=== PATIENT | female | born 1980 | race Caucasian/White ===

== ENCOUNTER 2018-01-19 08:35 | Day surgery (SDC) | payer OTHER ==
[2018-01-17 18:09] VITALS: BMI 44.4
[2018-01-19] MEDS ORDERED: PROPOFOL 20 ML ONE ×2 (08:52)
[2018-01-19 11:12] VITALS: BP 136/71; PULSE 54; TEMP 97.9
== END 2018-01-19 11:05 | disposition home or self-care (01) ==
LOC: FASU-ENDO 08:35
PROVIDERS: ATTEND Internal Medicine Gastroenterology
PROC: 0DJ08ZZ Inspection of Upper Intestinal Tract, Via Natural or Artificial Opening Endoscopic (ICD-10-PCS; principal; 2018-01-19 10:00)
DX: Z13.810 Encounter for screening for upper gastrointestinal disorder (principal); Z87.19 Personal history of other diseases of the digestive system
CPT/HCPCS: 84703

== ENCOUNTER 2018-05-11 08:58 | Day surgery (SDC) | payer OTHER ==
[2018-05-04 10:51] VITALS: BMI 42.5
[2018-05-11] MEDS ORDERED: LIDOCAINE HCL/PF 2% SDV 5ML VIAL ONE (10:28)
[2018-05-11] MEDS ORDERED: PROPOFOL 20 ML ONE ×2 (10:28)
[2018-05-11 11:32] VITALS: TEMP 98
[2018-05-11 13:39] VITALS: BP 124/85; PULSE 88
--- NOTE | 2018-05-13 11:47 | PATH ---
Surgical Pathology Report Patient Name: JOSÉ MIGUEL LAZARO [facility]. Rec. #: [id number] /Age/Gender: 1980 (Age: 38) / F Account: [id number] Location: [facility] Taken: 05/11/2018 Received: 05/11/2018 Reported: 05/13/2018 Physicians: Vonnie Pickett M.D. Specimen(s) Received A: DUODENUM B: ANTRUM C: GE JUNCTION Clinical History r/o celiac, r/o Castillo's, gastritis, duodenitis Final Diagnosis A. DUODENUM, BIOPSY: DUODENAL MUCOSA WITH NO PATHOLOGIC FINDINGS. Note: Features suggestive of celiac disease are not identified in this biopsy. B. ANTRUM, BIOPSY: MILD CHRONIC GASTRITIS. IMMUNOSTAIN IS NEGATIVE FOR H. PYLORI ORGANISMS. C. GE JUNCTION, BIOPSY: ESOPHAGOGASTRIC JUNCTIONAL (SQUAMOCOLUMNAR) MUCOSA SHOWING MODERATE CHRONIC INFLAMMATION AND FEATURES OF REFLUX ESOPHAGITIS. NEGATIVE FOR INTESTINAL METAPLASIA. Electronically Signed Daya Leslie M.D. Gross Description A. Received in formalin, labeled "duodenum" is one piece of coker tissue measuring 0.4 cm in greatest dimension. Entirely submitted in one cassette. B. Received in formalin, labeled "antrum" two pieces of coker tissue measuring 0.2 and 0.4 cm in greatest dimension. Entirely submitted in one cassette. C. Received in formalin, labeled "GE junction" are three pieces of coker tissue ranging from 0.2-0.4 cm in greatest dimension. Entirely submitted in one cassette. AE/05/11/2018 ebram/05/11/2018
== END 2018-05-11 12:00 | disposition home or self-care (01) ==
LOC: FASU-ENDO 08:58
PROVIDERS: ATTEND Internal Medicine Gastroenterology
PROC: 0DB58ZX Excision of Esophagus, Via Natural or Artificial Opening Endoscopic, Diagnostic (ICD-10-PCS; 2018-05-11)
PROC: 0DB98ZX Excision of Duodenum, Via Natural or Artificial Opening Endoscopic, Diagnostic (ICD-10-PCS; principal; 2018-05-11 11:00)
PROC: 0DB68ZX Excision of Stomach, Via Natural or Artificial Opening Endoscopic, Diagnostic (ICD-10-PCS; 2018-05-11 11:00)
DX: K22.70 Barrett's esophagus without dysplasia (principal); K29.50 Unspecified chronic gastritis without bleeding; K21.0 Gastro-esophageal reflux disease with esophagitis
CPT/HCPCS: 84703; 88305-TC; 88342-TC

== ENCOUNTER 2019-08-25 10:33 | Day surgery (SDC) | payer OTHER ==
[2019-08-24 14:48] VITALS: BMI 46.5
[2019-08-25] MEDS ORDERED: PROPOFOL 20 ML ONE ×2 (10:42)
[2019-08-25] MEDS ORDERED: MIDAZOLAM HCL 2 MG/2 ML SINGLE DOSE VIAL ONE (11:35)
[2019-08-25 13:57] VITALS: TEMP 98.1
[2019-08-25 14:02] VITALS: BP 125/57; PULSE 68
--- NOTE | 2019-08-29 15:03 | PATH ---
Surgical Pathology Report Patient Name: JOSÉ MIGUEL LAZARO [facility]. Rec. #: [id number] /Age/Gender: 1980 (Age: 39) / F Account: [id number] Location: [facility] Taken: 08/25/2019 Received: 08/25/2019 Reported: 08/29/2019 Physicians: Vonnie Pickett M.D. Specimen(s) Received A: ANTRUM B: GE JUNCTION Clinical History Barretts esophagus Postoperative diagnosis: Gastritis, Neumann's esophagus Final Diagnosis A. STOMACH, ANTRUM, BIOPSY: GASTRIC FUNDIC MUCOSA WITH MODERATE CHRONIC ACTIVE GASTRITIS. IMMUNOSTAIN FOR H. PYLORI IS NEGATIVE. B. 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 NO DYSPLASIA IDENTIFIED. Electronically Signed Arturo Reeves M.D. Gross Description A. Received in formalin, labeled "biopsy gastric antrum" is a coker, irregular portion of soft tissue measuring 0.4 cm. in greatest dimension. The specimen is submitted in toto in one cassette. B. Received in formalin, labeled "biopsy GE junction" are 6 coker, irregular portions of soft tissue ranging from 0.1-0.4 cm. in greatest dimension. The specimens are submitted in toto in one cassette. 08/28/2019 saudi08/28/2019
== END 2019-08-25 12:45 | disposition home or self-care (01) ==
LOC: FASU-ENDO 10:33
PROVIDERS: ATTEND Internal Medicine Gastroenterology
PROC: 0DB68ZX Excision of Stomach, Via Natural or Artificial Opening Endoscopic, Diagnostic (ICD-10-PCS; 2019-08-25)
PROC: 0DB18ZX Excision of Upper Esophagus, Via Natural or Artificial Opening Endoscopic, Diagnostic (ICD-10-PCS; 2019-08-25)
PROC: 0DB28ZX Excision of Middle Esophagus, Via Natural or Artificial Opening Endoscopic, Diagnostic (ICD-10-PCS; 2019-08-25)
PROC: 0DB38ZX Excision of Lower Esophagus, Via Natural or Artificial Opening Endoscopic, Diagnostic (ICD-10-PCS; 2019-08-25)
PROC: 0DB48ZX Excision of Esophagogastric Junction, Via Natural or Artificial Opening Endoscopic, Diagnostic (ICD-10-PCS; principal; 2019-08-25 11:40)
DX: K22.70 Barrett's esophagus without dysplasia (principal); K29.50 Unspecified chronic gastritis without bleeding
CPT/HCPCS: 84703; 88305-TC; 88342-TC

== ENCOUNTER 2021-06-18 12:57 | Emergency (ER) | payer MEDICARE ==
[2021-06-18 13:33] VITALS: BP 127/82; PULSE 90; TEMP 98.4; BMI 26.0
[2021-06-18] MEDS ORDERED: ALBUTEROL SO4 2.5/IPRATROPIUM 0.5 INH SOL 3 ML VIAL.NEB. NEB ONE ×2 (14:05→14:11)
[2021-06-18] MEDS ORDERED: IBUPROFEN 600 MG TABLET (FP) PO ONE ×2 (14:05→14:11)
[2021-06-18] MEDS ORDERED: predniSONE 20 MG TABLET (UD) ONE (14:18)
[2021-06-18] MEDS ORDERED: predniSONE 10 MG TABLET (UD) ONE (14:18)
[2021-06-19] MEDS ORDERED: predniSONE 20 MG TABLET (UD) PO ONE (14:17)
== END 2021-06-18 16:34 | disposition home or self-care (01) ==
LOC: JER 12:57
PROC: 3E0F7GC Introduction of Other Therapeutic Substance into Respiratory Tract, Via Natural or Artificial Opening (ICD-10-PCS; principal; 2021-06-18)
DX: R05.9 Cough, unspecified (principal)
CPT/HCPCS: 71046-TC-FY; 94640; 99284-25; C9803; U0003; U0005

== ENCOUNTER 2022-04-10 07:38 | Day surgery (SDC) | payer MEDICARE, OTHER ==
[2022-04-08 15:00] VITALS: BMI 27.9
[2022-04-10 07:58] VITALS: RESP 18
[2022-04-10 11:11] VITALS: TEMP 97.8
[2022-04-10 11:32] VITALS: BP 121/74; PULSE 81
== END 2022-04-10 11:40 | disposition home or self-care (01) ==
LOC: FASU-ENDO 07:38
PROVIDERS: ATTEND Internal Medicine Gastroenterology
PROC: 0DB68ZX Excision of Stomach, Via Natural or Artificial Opening Endoscopic, Diagnostic (ICD-10-PCS; 2022-04-10)
PROC: 0DB58ZX Excision of Esophagus, Via Natural or Artificial Opening Endoscopic, Diagnostic (ICD-10-PCS; 2022-04-10)
PROC: 0DB48ZX Excision of Esophagogastric Junction, Via Natural or Artificial Opening Endoscopic, Diagnostic (ICD-10-PCS; principal; 2022-04-10 10:30)
DX: Z87.19 Personal history of other diseases of the digestive system (principal); K29.50 Unspecified chronic gastritis without bleeding; K20.90 Esophagitis, unspecified without bleeding; Z98.84 Bariatric surgery status
CPT/HCPCS: 84703; 88305-TC; 88342-TC